=== PATIENT | male | born 1970 | race Asian ===

== ENCOUNTER 2017-01-27 22:03 | Inpatient (IN) | payer BC ==
--- NOTE | 2017-01-27 22:12 | EDPHY ---
H & P Stated Complaint: R foot pain, possibly d/t bite?, onset approx 14:30 today HPI/ROS: HPI CHIEF COMPLAINT: Right foot pain, swelling, redness HISTORY OF PRESENT ILLNESS: This patient very pleasant 46-year-old male, immunocompetent, nondiabetic, does not take any daily medications. He presents the emergency room with right foot pain. States 10/10 dorsum of the right foot. Redness. He denies any direct trauma. This started hurting him rather severe around 4 o'clock this evening. He does admit to increased heart rate. Denies fever. Has had chills. He is unsure exactly what caused his right foot pain. He did take a fall yesterday of his right knee but does not recall injuring his right foot. He states he was wearing sandals today. Developed this pain. Past Medical History: Denies Medical history Past Surgical History: Denies surgical history Social History: Denies daily use drugs alcohol tobacco products Family History: Noncontributory ROS REVIEW OF SYSTEMS: A comprehensive 10 point review of systems is otherwise negative aside from elements mentioned in the history of present illness. Exam Constitutional triage nursing summary reviewed, vital signs reviewed, awake/ alert. Eyes normal conjunctivae and sclera, EOMI, PERRLA. HENT normal inspection, atraumatic, moist mucus membranes, no epistaxis, neck supple/ no meningismus, no raccoon eyes. Respiratory clear to auscultation bilaterally, normal breath sounds, no respiratory distress, no wheezing. Cardiovascular rate normal, regular rhythm, no murmur, no edema, distal pulses normal. Gastrointestinal soft, non-tender, no rebound, no guarding, normal bowel sounds, no distension, no pulsatile mass. Genitourinary no CVA tenderness. Musculoskeletal right foot: Neurovascular intact. There is significant tenderness over the dorsum of the foot specifically over the 1st and 2nd metatarsal with erythema and warmth present. No fluctuance. When I have him plantar flexes cause of a great deal pain. There is no crepitus. No signs of compartment syndrome. no midline vertebral tenderness, full range of motion, no calf swelling, no tenderness of extremities, no meningismus, good pulses, neurovascularly intact. Skin pink, warm, & dry, no rash, skin atraumatic. Neurologic awake, alert and oriented x 3, AAOx3, moves all 4 extremities equally, motor intact, sensory intact, CN II-XII intact, normal cerebellar, normal vision, normal speech. Psychiatric normal mood/affect. Heme/Lymph/Immune no lymphadenopathy. Differential Diagnosis: Includes but is not limited to in a particular order: Right foot cellulitis, deep space foot infection, necrotizing fasciitis, MRSA infection, tendinitis, arthritis, gout Medical Decision Making: Plan for this patient IV establishment with blood work , blood cultures, lactic acid, inflammatory markers, obtain x-ray of right foot to evaluate for gas. Patient most likely need MRI of his right foot. Antibiotics. IV pain control with fentanyl and IV fluids. Re-evaluation: 2248: I discussed at length this patient about his evaluation of his acute right foot pain with erythema and warmth. I am very concerned that he has significant foot infection. This is not the classic position of where gout is. He is exquisitely tender. I am concerned of a foot infection possible tendinitis with infection. ED x-ray right foot: Negative for bony abnormality. No gas visualized. 4: Blood work has been reviewed. Does have a leukocytosis. Left shift. I have ordered this patient broad-spectrum antibiotics. IV vancomycin IV Zosyn. IV fentanyl for pain control. Patient pending MRI foot. 2324: Consult the hospitalist service Dr. Corbett who will agree to admit this patient. 2330: Spoke with ID Dr. Hudson Manriquez. He is agreeable with this workup at this time. Agrees with vanc and Zosyn. If the MRI does infection show necrotizing fasciitis recommends adding clindamycin. Hospitalist service updated. 1209AM: Patient is back from MRI. The MRI of his right foot show cellulitis. No deep space infection. No abscess. Patient be admitted for right foot cellulitis. Broad-spectrum antibiotics. Patient is hemodynamically stable no evidence of sepsis. IV vancomycin IV Zosyn ordered. Infectious Disease has been consulted. Hospitalist service been consult. Source: Patient - Personal History Current Tetanus/Diphtheria Vaccine: Yes Tetanus Vaccine Date: 2009 - Medical/Surgical History Hx Asthma: No Hx Chronic Respiratory Disease: No Hx Diabetes: No Hx Cardiac Disease: No Hx Renal Disease: No Hx Cirrhosis: No Hx Alcoholism: No Hx HIV/AIDS: No Hx Splenectomy or Spleen Trauma: No Other PMH: PMHx: diverticulitis. PSHx: L4-5 diskectomy, partial bowel resection - Social History Smoking Status: Light smoker Constitutional: Initial Vital Signs Temperature (C) 36.9 C 01/27/17 22:07 Heart Rate 102 H 01/27/17 22:07 Respiratory Rate 24 H 01/27/17 22:07 Blood Pressure 162/102 H 01/27/17 22:07 O2 Sat (%) 98 01/27/17 22:07 O2 Delivery Mode Room Air Allergies/Adverse Reactions: morphine Allergy (Severe, Verified 10/09/11 14:57) LUNG COLLAPSED AND FILLED Home Medications: Medication Instructions Recorded Herbals/Supplements -Info Only 1 ea PO DAILY 01/28/17 Medical Decision Making - Data Points Laboratory Results: Laboratory Results 01/27/17 22:40 01/27/17 22:40 Medications Given: Acetaminophen (Tylenol) 650 mg PO Q4HRS PRN PRN Reason: Pain, Mild/Fever, Can Take PO Stop: 07/26/17 23:26 Last Admin: 01/28/17 21:21 Dose: 650 mg Hydrocodone Bitart/Acetaminophen ([place] 5/325) 1 - 2 tab PO Q4HRS PRN PRN Reason: Pain, Moderate Able to Take PO Stop: 02/07/17 00:46 Last Admin: 01/28/17 21:44 Dose: 1 tab Diphenhydramine HCl (Benadryl Injection) 25 mg IVP Q6H PRN PRN Reason: Itching Stop: 07/27/17 13:04 Last Admin: 01/28/17 13:24 Dose: 25 mg Vancomycin HCl 1.25 gm/ (Dextrose) 250 mls @ 166.667 mls/hr IV Q12@0000,1200 PRANAY Stop: 02/27/17 11:59 Last Admin: 01/29/17 00:45 Dose: 250 mls Clindamycin Phosphate/Dextrose (Cleocin 600 Mg (Premix)) 50 mls @ 100 mls/hr IV Q8HRS PRANAY PRN Reason: Protocol Stop: 02/27/17 13:59 Last Admin: 01/28/17 21:13 Dose: 50 mls Ibuprofen (Motrin) 400 mg PO Q6HRS PRN PRN Reason: Pain, Inflammatory Stop: 07/27/17 11:02 Last Admin: 01/28/17 18:58 Dose: 400 mg Miscellaneous Medication (Non-Formulary) 1 ea PO QD PRN PRN Reason: DIETARY SUPPLEMENT Stop: 07/27/17 18:17 Last Admin: 01/28/17 22:03 Dose: 10 ml Throat Lozenges (Cepacol Lozenge) 1 ea PO PRN PRN PRN Reason: Sore Throat Stop: 07/27/17 10:01 Last Admin: 01/28/17 12:16 Dose: 1 ea Discontinued Medications Acetaminophen (Tylenol) 1,000 mg PO EDNOW ONE Stop: 01/28/17 00:28 Last Admin: 01/28/17 00:29 Dose: 1,000 mg Fentanyl (Sublimaze) 75 mcg IVP EDNOW ONE Stop: 01/27/17 22:40 Last Admin: 01/27/17 22:47 Dose: 75 mcg Fentanyl (Sublimaze) 50 mcg IVP EDNOW ONE Stop: 01/28/17 00:20 Last Admin: 01/28/17 00:23 Dose: 50 mcg Sodium Chloride (Ns) 1,000 mls @ 0 mls/hr IV ONCE ONE PRN Reason: Wide Open Stop: 01/27/17 22:32 Last Admin: 01/27/17 22:47 Dose: 1,000 mls Vancomycin/Sodium Chloride (Vancomycin 1 Gm (Premix)) 250 mls @ 250 mls/hr IV EDNOW ONE PRN Reason: Protocol Stop: 01/27/17 23:52 Last Admin: 01/28/17 00:18 Dose: 250 mls Piperacillin/Tazobactam/Dextrose (Zosyn (Premix)) 100 mls @ 200 mls/hr IV EDNOW ONE PRN Reason: Protocol Stop: 01/27/17 23:22 Last Admin: 01/27/17 23:19 Dose: 100 mls Sodium Chloride (Ns) 1,000 mls @ 125 mls/hr IV CONT PRANAY Stop: 07/27/17 00:59 Last Admin: 01/28/17 02:17 Dose: 1,000 mls Sodium Chloride (Ns) 1,000 mls @ 3,000 mls/hr IV ONCE ONE Stop: 01/28/17 01:09 Last Admin: 01/28/17 05:28 Dose: 1,000 mls Piperacillin/Tazobactam/Dextrose (Zosyn (Premix)) 100 mls @ 200 mls/hr IV Q6HRS PRANAY PRN Reason: Protocol Stop: 02/27/17 05:59 Last Admin: 01/28/17 07:44 Dose: 100 mls Ondansetron HCl (Zofran) 4 mg IVP EDNOW ONE Stop: 01/27/17 22:40 Last Admin: 01/27/17 22:47 Dose: 4 mg Departure - Departure Disposition: [facility] Acute Clinical Impression: Cellulitis of foot Condition: Fair
[2017-01-27] MEDS ORDERED: NS 1,000 ML IV ONE (22:31)
[2017-01-27] MEDS ORDERED: ONDANSETRON 4 MG/2 ML VIAL IVP ONE (22:39)
[2017-01-27] MEDS ORDERED: fentaNYL 100 MCG/2 ML INJ IVP ONE (22:39)
[2017-01-27 22:49] LABS: % IMMATURE GRANULYOCYTES 0.3 % (0.0-1.1); ABSOLUTE IMMATURE GRANULOCYTES 0.04 10^3/uL (0.00-0.10); ADD DIFF? NO; ADD MORPH? NO; ADD SCAN? NO; ATYPICAL LYMPHOCYTE FLAG 0 (0-99); FRAGMENT RBC FLAG 0 (0-99); HEMATOCRIT 45.6 % (40.0-51.0); HEMOGLOBIN 14.9 g/dL (13.7-17.5); LEFT SHIFT FLG 0 (0-99); LIPEMIA HEMOLYSIS FLAG 80 (0-99); MEAN CELL HEMOGLOBIN 25.2 pg (27.9-34.1); MEAN CELL HEMOGLOBIN CONCENTR. 32.7 g/dL (32.4-36.7); MEAN CELL VOLUME 77.2 fL (81.5-99.8); MEAN PLATELET VOLUME 10.1 fL (8.7-11.7); PLATELET CLUMPS FLAG 0 (0-99); PLATELET COUNT 250 10^3/uL (150-400); RED BLOOD CELL COUNT 5.91 10^6/uL (4.40-6.38); RED CELL DISTRIBUTION WIDTH 15.9 % (11.5-15.2)
[2017-01-27] MEDS ORDERED: VANCOMYCIN HCL/NORMAL SALINE 250 ML IV ONE (22:53)
[2017-01-27] MEDS ORDERED: PIPERACILLIN/TAZO 4.5 GM/DEX 100 ML IV ONE (22:53)
[2017-01-27 23:00] LABS: SEDIMENTATION RATE 8 MM/HR (0-15)
[2017-01-27 23:04] LABS: ANION GAP 14 mEq/L (8-16); C-REACTIVE PROTEIN 10.2 mg/L (<10.0); CALCIUM 9.9 mg/dL (8.5-10.4); CARBON DIOXIDE 27 mEq/l (22-31); CHLORIDE 101 mEq/L (97-110); GLOMERULAR FILTRATION RATE > 60; GLUCOSE 71 mg/dL (70-100); POTASSIUM 4.4 mEq/L (3.5-5.2); SODIUM 142 mEq/L (134-144)
[2017-01-27] MEDS ORDERED: TEMAZEPAM 15 MG CAP PO PRN (23:27)
[2017-01-27] MEDS ORDERED: ONDANSETRON DISINTEGRATING 4 MG TAB PO PRN (23:27)
[2017-01-27] MEDS ORDERED: ONDANSETRON 4 MG/2 ML VIAL IVP PRN (23:27)
[2017-01-27] MEDS ORDERED: ACETAMINOPHEN 325 MG TAB PO PRN (23:27)
[2017-01-27] MEDS ORDERED: fentaNYL 100 MCG/2 ML INJ IVP PRN (23:29)
[2017-01-27] MEDS ORDERED: GADOBUTROL 10 ML VIAL IVP ONE (23:39)
[2017-01-28] MEDS ORDERED: fentaNYL 100 MCG/2 ML INJ IVP ONE (00:19)
[2017-01-28] MEDS ORDERED: ACETAMINOPHEN 500 MG TAB PO ONE (00:27)
[2017-01-28] MEDS ORDERED: NS 1,000 ML IV ONE (00:50)
[2017-01-28] MEDS ORDERED: NS 1,000 ML IV SCH (01:00)
--- NOTE | 2017-01-28 01:19 | GHP ---
[f rep st] HISTORY AND PHYSICAL DATE OF ADMISSION: 01/27/2017 CHIEF COMPLAINT: Right foot pain. HISTORY OF PRESENT ILLNESS: This is a 46-year-old man who presents with sudden onset of right foot pain at 3 p.m. today. Notes that it has been red, as well as warm. It has also been extremely painful. The redness and warmth have worsened. He feels as though he is now unable to bear weight on it. He has had some chills since being in the emergency department. He does not have a history of diabetes. He does have a history of 2 wound infections post surgery. He has never had a history of any resistant organisms to his knowledge. PAST MEDICAL/SURGICAL HISTORY: 1. Diverticulitis with wound infection. 2. Left KOLBY also with a wound infection. MEDICATIONS: Please see medication reconciliation. ALLERGIES: Morphine, this was after going to the OR. FAMILY HISTORY: Reviewed and noncontributory. SOCIAL HISTORY: He is accompanied by his . REVIEW OF SYSTEMS: A 10-point review of systems is conducted and is negative except per HPI. PHYSICAL EXAM: VITAL SIGNS: Blood pressure 119/82, heart rate 96, respiration rate 16, saturating 97% on room air, temperature is 37.6. GENERAL: The patient is a pleasant man who is lying comfortably in bed. No acute distress. HEENT: Shows him to be normocephalic, atraumatic. CARDIOVASCULAR: Shows regular rate and rhythm. No murmurs, rubs, or gallops. PULMONARY: Lungs clear to auscultation bilaterally. ABDOMEN: Soft, nontender, nondistended. SKIN: No rash. : No Chaney. NEUROLOGIC: Shows him to be alert and oriented x3. He is moving all extremities. PSYCHIATRIC: Shows normal mood and affect. EXTREMITIES: Shows right foot to have an area of erythema on the dorsum of the foot. It is very warm. There was a line that was drawn by his . It has extended beyond this. The left toe on the medial aspect has an area of denuded skin. LABORATORY DATA: His white count is 14.2 with 82% neutrophils. basic metabolic panel is normal. CRP is 10. ESR is 8. 1. I discussed with Dr. Diego in the emergency department. Will admit to med/ surg for antibiotics. 2. I reviewed his prelim read on his MRI, shows cellulitis, no osteomyelitis, no abscess. 3. I reviewed his foot x-ray. This shows no evidence of fracture or osteomyelitis. IMPRESSION AND PLAN: A 46-year-old man with right foot cellulitis. 1. Right foot cellulitis: I think this is likely gram-positive, although per verbal report Dr. Manriquez has recommended vancomycin and Zosyn. We will continue these empirically for now, but I suspect we will narrow spectrum to gram-positives soon. I have asked that the nurse redraw a line around his area of erythema. We will monitor his clinical course very closely including vital signs, labs. I have given him some additional fluid. 2. Leukocytosis: This is due to the above process. Will follow tomorrow morning. /[id number]/MODL MTDD
[2017-01-28] MEDS: HYDROCODONE/APAP 5/325 TAB PO PRN ×3 (02:17→21:44)
[2017-01-28 04:51] LABS: % IMMATURE GRANULYOCYTES 0.3 % (0.0-1.1); ABSOLUTE IMMATURE GRANULOCYTES 0.03 10^3/uL (0.00-0.10); ADD DIFF? NO; ADD MORPH? NO; ADD SCAN? NO; ATYPICAL LYMPHOCYTE FLAG 10 (0-99); FRAGMENT RBC FLAG 0 (0-99); HEMATOCRIT 37.8 % (40.0-51.0); LEFT SHIFT FLG 0 (0-99); LIPEMIA HEMOLYSIS FLAG 80 (0-99); MEAN CELL HEMOGLOBIN 24.6 pg (27.9-34.1); MEAN CELL HEMOGLOBIN CONCENTR. 31.7 g/dL (32.4-36.7); MEAN CELL VOLUME 77.5 fL (81.5-99.8); MEAN PLATELET VOLUME 10.4 fL (8.7-11.7); PLATELET CLUMPS FLAG 0 (0-99); PLATELET COUNT 191 10^3/uL (150-400); RED BLOOD CELL COUNT 4.88 10^6/uL (4.40-6.38); RED CELL DISTRIBUTION WIDTH 15.8 % (11.5-15.2)
[2017-01-28 05:02] LABS: ALANINE AMINOTRANSFERASE 34 IU/L (21-72); ALBUMIN 3.2 g/dL (3.5-5.0); ALKALINE PHOSPHATASE 52 IU/L (38-126); ANION GAP 9 mEq/L (8-16); ASPARTATE AMINOTRANSFERASE 26 IU/L (17-59); BILIRUBIN,TOTAL 0.5 mg/dL (0.1-1.4); CALCIUM 8.5 mg/dL (8.5-10.4); CARBON DIOXIDE 24 mEq/l (22-31); CHLORIDE 102 mEq/L (97-110); GLOMERULAR FILTRATION RATE > 60; GLUCOSE 97 mg/dL (70-100); SODIUM 135 mEq/L (134-144)
[2017-01-28] MEDS ORDERED: PIPERACILLIN/TAZO 4.5 GM/DEX 100 ML IV SCH ×4 (06:00→14:00)
--- NOTE | 2017-01-28 10:07 | HOSPPROG ---
Hospitalist Progress Note Assessment/Plan: Patient is a 46-year-old male presented to the emergency room with sudden onset of right foot pain. It was noted to be red and warm. He was unable to bear weight on it. Today is my 1st encounter with the patient. Chart reviewed. Discussed his care with Dr. Corbett who admitted him last night. * right foot cellulitis empirically started on vancomycin and Zosyn Infectious Disease to see him MRI shows cellulitis without osteomyelitis, no abscess * pain due to this continue pain medications trial of anti-inflammatory * leukocytosis improved Subjective: Gloria said pain is intense with walking. Objective: Vital Signs Temp Pulse Resp BP Pulse Ox 37.7 C 74 16 108/72 95 01/28/17 07:51 01/28/17 07:51 01/28/17 07:51 01/28/17 07:51 01/28/17 07:51 Laboratory Results 01/28/17 04:19 01/28/17 04:19 01/27/17 01/28/17 01/29/17 05:59 05:59 05:59 Intake Total 1000 Balance 1000 - Physical Exam Constitutional: no apparent distress, appears nourished Eyes: PERRL Ears, Nose, Mouth, Throat: hearing normal Cardiovascular: regular rate and rhythym Respiratory: no respiratory distress Gastrointestinal: normoactive bowel sounds Skin: warm, other (r foot w some erythema on the top part of the foot/warm, red , tender) Neurologic: AAOx3 Psychiatric: interacting appropriately ICD10 Worksheet Patient Problems: Problems Problem Status Onset Cellulitis of foot Acute
[2017-01-28] MEDS: CEPACOL LOZENGE PO PRN ×2 (10:13→12:16)
--- NOTE | 2017-01-28 10:32 | WOCRNPDOC ---
WOCRN Advanced Assessment Note - Skin Integrity Problem, Advanced Assess Right Fifth Toe Dressing Type: Open to Air Exudate Amount: None Exudate Characteristic(s): None Stacie Wound Tissue: Erythema, Intact Stacie Wound Swelling: Mild Wound Bed Color: Red Skin Integrity Problem Comment: Pinpoint abrasion noted on inner medial 5th toe , which patient reports is the result of a friction injury from running. While this site does not appear to be open at this time, this could have been a point of entry for current infection in R foot. From a wound care perspective, there is really nothing to be done at this point. Discussed w/ patient the possibility of placing foam (maybe using a commerical soft foam pad for corns, such as Dr. Palumbo's) between his 4th and 5th toes ongoing to prevent this injury from reoccuring. Wound care does not need to follow this patient going forward, and nursing should reconsult w/ any new or additional concerns.
[2017-01-28] MEDS: VANCOMYCIN 1.25 GM in D5W 250 ML IV SCH (11:45)
[2017-01-28] MEDS: CLINDAMYCIN 600 MG/DEXTROSE 50 ML IV SCH ×2 (14:16→21:13)
[2017-01-28] MEDS ORDERED: COLD EEZE PO PRN (18:16)
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
[2017-01-28] MEDS: ELDERBERRY EXTRACT PO PRN ×2 (18:42→22:03)
[2017-01-28] MEDS: IBUPROFEN 200 MG TAB PO PRN (18:58)
[2017-01-29] MEDS: VANCOMYCIN 1.25 GM in D5W 250 ML IV SCH ×2 (00:45→13:52)
--- NOTE | 2017-01-29 01:27 | GCON ---
[f rep st] CONSULTATION DATE OF CONSULTATION: 01/28/2017 HISTORY: This is a 46-year-old male who was admitted with right foot pain of a short duration. He stated his right foot has become progressively worse over just 24 hours. He has had associated low- grade fevers. On admission, his white count was elevated, but the sedimentation rate was normal. Jonathan leblanc did have a fall the day before admission, where he struck mostly his knee. He has been training a ggressively for a triathlon with a significant amount of running and biking. He is admitted at this time for right foot cellulitis, and I was asked to consult to rule out necrotizing fasciitis. MRI of his foot reveals superficial edema consistent with cellulitis with no evidence of bony involvemen t. Foot x-ray reveals no obvious fractures. PAST MEDICAL HISTORY: Negative for any surgical intervention. He also denies any major medical pro blems. FAMILY HISTORY: Noncontributory. REVIEW OF SYSTEMS: Reveals no major other medical problems on a full 10-point review of systems. PAST SURGICAL HISTORY: Negative. SOCIAL HISTORY: He does not smoke. PHYSICAL EXAMINATION: GENERAL: An alert 46-year-old male in no acute distress. HEENT: Exam appea rs to be normal. His pupils are normal. There is no adenopathy. No icterus. NECK: Supple. CHES T: Clear and symmetric. CARDIAC: Regular rhythm. ABDOMEN: Soft without masses, or organomegaly. GENITALIA: Normal. EXTREMITIES: Benign with full distal pulses. On the dorsum of his right edelmira t is an area of erythema and extreme tenderness. He has full range of motion of his foot. NEUROLOG IC: Reveals the exam to be symmetrical and physiologic. PSYCHIATRIC: He is oriented and alert and cooperative. SKIN: Reveals a small abrasion between his right 5th and 4th toes, but no purulence, or drainage, or erythema. IMPRESSION: Cellulitis of the right foot. I do not feel there is any evidence at this point of nec rotizing fasciitis, despite his pain inconsistent with his physical findings. He has been training hard. He may have an element of tendinitis associated with this, or as the actual cause of his unde rlying problem in the right foot. RECOMMENDATIONS: An anti-inflammatory such as Indocin. Close observation on IV antibiotics. I and D if worsening. /[id number]/MODL
[2017-01-29] MEDS: CLINDAMYCIN 600 MG/DEXTROSE 50 ML IV SCH ×3 (05:05→21:15)
[2017-01-29] MEDS: HYDROCODONE/APAP 5/325 TAB PO PRN ×3 (09:51→17:22)
--- NOTE | 2017-01-29 10:30 | PCMIDPN ---
Assessment/Plan: Assessment/Plan: * Right foot cellulitis: Mild improvement with less tenderness over outer portion of cellulitic area. Appreciate Dr. Escoto' consultation. No extension of cellulitis other than small area of lymphangitis present over ankle. Continue vancomycin and clindamycin with lower extremity elevation. Continue to follow exam over time. Will assess vancomycin trough today. 01/29/17 10:26 Subjective: Patient felt like foot was better around 4:00 a.m. but significant tenderness with ambulation again around 8:00 a.m.. Fever yesterday with chills. Scalp itching resolve with longer duration of vancomycin infusion. Objective: Vital Signs Temp Pulse Resp BP Pulse Ox 37.1 C 72 16 140/87 H 98 01/29/17 08:00 01/29/17 08:00 01/29/17 08:00 01/29/17 08:00 01/29/17 08:00 Laboratory Results 01/28/17 04:19 01/28/17 04:19 01/28/17 01/29/17 01/30/17 05:59 05:59 05:59 Intake Total 1000 350 800 Balance 1000 350 800 ESR 8 MM/HR (0-15) 01/27/17 22:40 C-Reactive Protein 10.2 mg/L (<10.0) H 01/27/17 22:40 Vancomycin # 2 Clindamycin # 2 Blood cultures x2 no growth - Physical Exam General Appearance: alert, no apparent distress EENT: No scleral icterus Extremities: inflammation (Right foot with erythema localized over dorsal aspect which is less prominent in extent; still remains exquisitely tender; no fluctuance or bulla) Lymphatic: other (Small area of faint lymphangitis over ankle region) ICD10 Worksheet Patient Problems: Problems Problem Status Onset Cellulitis of foot Acute
[2017-01-29] MEDS: IBUPROFEN 200 MG TAB PO PRN (12:39)
--- NOTE | 2017-01-29 12:50 | HOSPPROG ---
Hospitalist Progress Note Assessment/Plan: Patient is a 46-year-old male presented to the emergency room with sudden onset of right foot pain. It was noted to be red and warm. He was unable to bear weight on it. Reviewed his care with Dr Nash. * right foot cellulitis vancomycin and clindamycin ID and surgery involved less painful today MRI shows cellulitis without osteomyelitis, no abscess * pain due to this continue pain medications *fevers none today * leukocytosis improved *Plan: he is not quite ready for dc/ still having pain/ will continued close monitoring Subjective: Gloria said his pain has changed/ went to 2 last evening and then increased to a 7 on scale of 1-10. Not having significant pain during my evluation. Objective: Vital Signs Temp Pulse Resp BP Pulse Ox 37.1 C 72 16 140/87 H 98 01/29/17 08:00 01/29/17 08:00 01/29/17 08:00 01/29/17 08:00 01/29/17 08:00 Laboratory Results 01/28/17 04:19 01/28/17 04:19 01/28/17 01/29/17 01/30/17 05:59 05:59 05:59 Intake Total 1000 350 800 Balance 1000 350 800 - Physical Exam Constitutional: no apparent distress, appears nourished Eyes: PERRL Ears, Nose, Mouth, Throat: hearing normal Cardiovascular: regular rate and rhythym, bradycardia Respiratory: no respiratory distress Skin: warm, other (right dorsal are of foot with redness now w some tenderness aroung ankle and up into the dueñas area.) Musculoskeletal: muscular tenderness Neurologic: AAOx3 Psychiatric: interacting appropriately ICD10 Worksheet Patient Problems: Problems Problem Status Onset Cellulitis of foot Acute
[2017-01-29] MEDS: VANCOMYCIN 1.5 GM in D5W 250 ML IV SCH (14:18)
[2017-01-29] MEDS ORDERED: IBUPROFEN 200 MG TAB PO PRN (14:48)
[2017-01-29] MEDS: KETOROLAC 15 MG/1 ML SDV IVP SCH ×2 (17:21→23:48)
--- NOTE | 2017-01-29 17:21 | SOAPPROG ---
SOAP Progress Note Assessment/Plan: Assessment: FOLLOW-UP RIGHT FOOT CELLULITIS/TEMPERATURE DOWN/PAIN IS SOMEWHAT BETTER/ ERYTHEMA RESOLVED/ STILL SUSPECT AN ELEMENT OF TENDINITIS Plan: WE WILL FOLLOW/RECOMMEND TORADOL OR INDOCIN 01/29/17 17:18 Objective: Vital Signs Temp Pulse Resp BP Pulse Ox 37.1 C 72 16 140/87 H 98 01/29/17 08:00 01/29/17 08:00 01/29/17 08:00 01/29/17 08:00 01/29/17 08:00 ICD10 Worksheet Patient Problems: Problems Problem Status Onset Cellulitis of foot Acute
[2017-01-29] MEDS ORDERED: MAGNESIUM HYDROXIDE 30 ML UDCUP PO PRN (18:09)
[2017-01-29] MEDS ORDERED: BISACODYL 10 MG SUPP PR PRN (18:09)
[2017-01-29] MEDS ORDERED: POLYETHYLENE GLYCOL 3350 17 GM PKT PO PRN (18:09)
[2017-01-29] MEDS ORDERED: LACTULOSE 20 GM/30 ML UDCUP PO PRN (18:09)
[2017-01-29] MEDS: SENNOSIDES/DOCUSATE SODIUM TAB PO SCH (21:14)
[2017-01-30] MEDS: VANCOMYCIN 1.5 GM in D5W 250 ML IV SCH (03:48)
[2017-01-30 05:14] LABS: % IMMATURE GRANULYOCYTES 0.3 % (0.0-1.1); ABSOLUTE IMMATURE GRANULOCYTES 0.03 10^3/uL (0.00-0.10); ADD DIFF? NO; ADD MORPH? NO; ADD SCAN? NO; ATYPICAL LYMPHOCYTE FLAG 30 (0-99); FRAGMENT RBC FLAG 0 (0-99); HEMATOCRIT 37.8 % (40.0-51.0); HEMOGLOBIN 12.2 g/dL (13.7-17.5); LEFT SHIFT FLG 10 (0-99); LIPEMIA HEMOLYSIS FLAG 80 (0-99); MEAN CELL HEMOGLOBIN 24.8 pg (27.9-34.1); MEAN CELL HEMOGLOBIN CONCENTR. 32.3 g/dL (32.4-36.7); MEAN CELL VOLUME 76.8 fL (81.5-99.8); MEAN PLATELET VOLUME 10.3 fL (8.7-11.7); PLATELET CLUMPS FLAG 0 (0-99); PLATELET COUNT 187 10^3/uL (150-400); RED BLOOD CELL COUNT 4.92 10^6/uL (4.40-6.38); RED CELL DISTRIBUTION WIDTH 15.6 % (11.5-15.2)
[2017-01-30] MEDS: KETOROLAC 15 MG/1 ML SDV IVP SCH ×3 (05:42→17:37)
[2017-01-30 05:43] LABS: ALANINE AMINOTRANSFERASE 35 IU/L (21-72); ALBUMIN 3.4 g/dL (3.5-5.0); ALKALINE PHOSPHATASE 50 IU/L (38-126); ANION GAP 10 mEq/L (8-16); ASPARTATE AMINOTRANSFERASE 23 IU/L (17-59); BILIRUBIN,TOTAL 0.5 mg/dL (0.1-1.4); CALCIUM 8.7 mg/dL (8.5-10.4); CARBON DIOXIDE 26 mEq/l (22-31); CHLORIDE 101 mEq/L (97-110); CREATININE 0.8 mg/dL (0.7-1.3); GLOMERULAR FILTRATION RATE > 60; GLUCOSE 107 mg/dL (70-100); SODIUM 137 mEq/L (134-144); TOTAL PROTEIN 6.2 g/dL (6.3-8.2)
[2017-01-30] MEDS: CLINDAMYCIN 600 MG/DEXTROSE 50 ML IV SCH (08:12)
[2017-01-30] MEDS: SENNOSIDES/DOCUSATE SODIUM TAB PO SCH ×2 (08:26→21:37)
--- NOTE | 2017-01-30 08:53 | HOSPPROG ---
Hospitalist Progress Note Assessment/Plan: Patient is a 46-year-old male presented to the emergency room with sudden onset of right foot pain. It was noted to be red and warm. He was unable to bear weight on it. Reviewed his care with Dr Nash. * right foot cellulitis/ with some tendonitis vancomycin and clindamycin ID and surgery involved MRI shows cellulitis without osteomyelitis, no abscess * pain due to this continue pain medications *fevers none today * leukocytosis improved *Plan: Objective: Vital Signs Temp Pulse Resp BP Pulse Ox 36.9 C 72 18 149/82 H 95 01/30/17 07:47 01/30/17 07:47 01/30/17 07:47 01/30/17 07:47 01/30/17 07:47 Laboratory Results 01/30/17 04:34 01/30/17 04:34 01/29/17 01/30/17 01/31/17 05:59 05:59 05:59 Intake Total 250 Balance 250 ICD10 Worksheet Patient Problems: Problems Problem Status Onset Cellulitis of foot Acute
--- NOTE | 2017-01-30 10:03 | SOAPPROG ---
SOAP Progress Note Assessment/Plan: Assessment: 46 yo male with right foot cellulitis without evidence of osteomyelitis or abscess Continue Toradol Continue Vanc and clindamycin Appreciate ID Ambulate as tolerated White count WNL today Appreciate hospitalists Seen and examined with Dr. Escoto S: patient states pain much improved with Toradol. He is able to ambulate independently. No other concerns at this time O: Afebrile, NAD MMM Right foot erythematous but improved. No warmth or drainage present Good strength and mobility with plantarflexion and dorsiflexion Objective: Vital Signs Temp Pulse Resp BP Pulse Ox 36.9 C 72 18 149/82 H 95 01/30/17 07:47 01/30/17 07:47 01/30/17 07:47 01/30/17 07:47 01/30/17 07:47 Laboratory Results 01/30/17 04:34 01/30/17 04:34 01/29/17 01/30/17 01/31/17 05:59 05:59 05:59 Intake Total 250 Balance 250 ICD10 Worksheet Patient Problems: Problems Problem Status Onset Cellulitis of foot Acute
[2017-01-30] MEDS: HYDROCODONE/APAP 5/325 TAB PO PRN ×2 (10:36→17:40)
--- NOTE | 2017-01-30 10:43 | PCMIDPN ---
Assessment/Plan: Assessment/Plan: * Right foot cellulitis: Continued slow improvement in cellulitis over dorsum of foot. Worse with dependency which I discussed with patient noting not unexpected to see this occur. 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 Given use of Toradol, will discontinue vancomycin and change to cefazolin based on likely microbiologic etiology and allows to avoid use of concomitant possible nephrotoxins. Will also discontinue clindamycin as likely have achieve maximal benefit in terms of combating toxin production. Continue leg elevation. Think patient requires continued hospitalization for IV antibiotics based on clinical findings although hopeful may be able to transition to oral therapy in next 24-48 hours. 01/30/17 10:34 Subjective: Patient notes that foot appears more swollen and red with standing. Dissipates when lies back down and elevates lower extremity. Objective: Vital Signs Temp Pulse Resp BP Pulse Ox 36.9 C 72 18 149/82 H 95 01/30/17 07:47 01/30/17 07:47 01/30/17 07:47 01/30/17 07:47 01/30/17 07:47 Laboratory Results 01/30/17 04:34 01/30/17 04:34 01/29/17 01/30/17 01/31/17 05:59 05:59 05:59 Intake Total 250 Balance 250 ESR 8 MM/HR (0-15) 01/27/17 22:40 C-Reactive Protein 10.2 mg/L (<10.0) H 01/27/17 22:40 Vancomycin # 3 Clindamycin # 3 Blood cultures x2 no growth Laboratory Tests 01/29/17 11:25 Vancomycin Trough 6.0 - Physical Exam General Appearance: alert, no apparent distress EENT: No scleral icterus Extremities: inflammation (Erythema over dorsum of foot significantly less prominent; tenderness also significantly decreased; edema present over dorsal aspect extending to medial malleolar region; more prominent with dependency) Lymphatic: other (Faint lymphangitis in lower leg above ankle) ICD10 Worksheet Patient Problems: Problems Problem Status Onset Cellulitis of foot Acute
[2017-01-30] MEDS: ceFAZolin 2 GM/DEXTROSE 100 ML IV SCH ×3 (10:50→21:37)
--- NOTE | 2017-01-30 15:51 | HOSPPROG ---
Hospitalist Progress Note Assessment/Plan: Patient is a 46-year-old male presented to the emergency room with sudden onset of right foot pain. It was noted to be red and warm. He was unable to bear weight on it. Reviewed his care with Dr Nash. * right foot cellulitis/ with some tendonitis antibiotics changed to cefazolin ID and surgery involved MRI shows cellulitis without osteomyelitis, no abscess trial of Toradol to see if this helps with this pain * pain due to this continue pain medications *fevers none today * leukocytosis improved * DVT prophylaxis: will initiate low molecular weight heparin because he is not mobilizing that much *Plan: redness and pain are ongoing he will require another midnight stay. Hopefully will be discharged in the next 1-2 days. Subjective: Gloria ambulated in the room for me and said pain increased to a '7' Objective: Vital Signs Temp Pulse Resp BP Pulse Ox 37.2 C 69 18 142/94 H 95 01/30/17 15:41 01/30/17 15:41 01/30/17 15:41 01/30/17 15:41 01/30/17 15:41 Laboratory Results 01/30/17 04:34 01/30/17 04:34 01/29/17 01/30/17 01/31/17 05:59 05:59 05:59 Intake Total 250 Balance 250 - Physical Exam Constitutional: uncomfortable Eyes: PERRL Ears, Nose, Mouth, Throat: hearing normal Cardiovascular: regular rate and rhythym Respiratory: no respiratory distress Gastrointestinal: normoactive bowel sounds Skin: other ( the dorsal top of the right foot is red has swelling around the ankle area, the warmth is less today) Musculoskeletal: muscular tenderness Neurologic: AAOx3 Psychiatric: interacting appropriately ICD10 Worksheet Patient Problems: Problems Problem Status Onset Cellulitis of foot Acute
[2017-01-30] MEDS: ENOXAPARIN 40 MG/0.4 ML SYR SC SCH (16:49)
[2017-01-30 23:42] VITALS: RESP 16
[2017-01-31] MEDS: HYDROCODONE/APAP 5/325 TAB PO PRN ×3 (00:13→11:42)
[2017-01-31] MEDS: KETOROLAC 15 MG/1 ML SDV IVP SCH ×3 (00:14→11:33)
[2017-01-31] MEDS: ceFAZolin 2 GM/DEXTROSE 100 ML IV SCH (05:48)
[2017-01-31 07:43] VITALS: BP 132/88; PULSE 59; TEMP 98; O2SAT 96
--- NOTE | 2017-01-31 09:31 | PCMIDPN ---
Assessment/Plan: Assessment/Plan: * Right foot cellulitis: Significantly improved with resolution of erythema and tenderness over dorsal aspect of foot. Some residual edema over medial malleolar region. Able to walk without significant tenderness. Will transition cefazolin to Augmentin 875 mg twice daily x7 days. Follow up with me in the office on 02/05/2017 at 1:00 p.m.. Continue ibuprofen three times daily for next 3-4 days and then as needed. 01/31/17 09:29 Subjective: Patient feels significantly improved with decreased pain and no problems with ambulation. Objective: Vital Signs Temp Pulse Resp BP Pulse Ox 36.6 C 59 L 16 132/88 H 96 01/31/17 07:40 01/31/17 07:40 01/31/17 07:40 01/31/17 07:40 01/31/17 07:40 Laboratory Results 01/30/17 04:34 01/30/17 04:34 01/30/17 01/31/17 02/01/17 05:59 05:59 05:59 Intake Total 250 1000 Balance 250 1000 ESR 8 MM/HR (0-15) 01/27/17 22:40 C-Reactive Protein 10.2 mg/L (<10.0) H 01/27/17 22:40 Cefazolin # 2 Antibiotics # 4 Blood cultures x2 no growth - Physical Exam General Appearance: alert, no apparent distress EENT: No scleral icterus Extremities: inflammation (Erythema and tenderness over dorsal aspect of foot resolved; edema remains over medial malleolar region; erythema over malleolar region significantly decreased), other (Patient able to walk without significant pain) Lymphatic: other (Lymphangitis over right lower extremity now resolved) ICD10 Worksheet Patient Problems: Problems Problem Status Onset Cellulitis of foot Acute
[2017-01-31] MEDS: SENNOSIDES/DOCUSATE SODIUM TAB PO SCH (10:04)
[2017-01-31] MEDS: ENOXAPARIN 40 MG/0.4 ML SYR SC SCH (10:05)
--- NOTE | 2017-01-31 11:54 | SOAPPROG ---
SOAP Progress Note Assessment/Plan: Assessment: 46 yo male with right foot cellulitis without evidence of osteomyelitis or abscess Continue Toradol and Ibuprofen for pain Continue Vanc and clindamycin Appreciate ID Ambulate as tolerated White count WNL today Appreciate hospitalists Dispo: to home with follow up with in Dr. Escoto's office in one week Seen and examined with Dr. Escoto S: patient states pain covered Toradol. He is able to ambulate independently. No other concerns at this time O: Patient walking around room. Afebrile, NAD MMM Right foot erythematous but continues to improve. No warmth or drainage present. Minor right foot edema. Good strength with plantarflexion and dorsiflexion Full ROM 01/31/17 11:51 Objective: Vital Signs Temp Pulse Resp BP Pulse Ox 36.6 C 59 L 16 132/88 H 96 01/31/17 07:40 01/31/17 07:40 01/31/17 07:40 01/31/17 07:40 01/31/17 07:40 Laboratory Results 01/30/17 04:34 01/30/17 04:34 01/30/17 01/31/17 02/01/17 05:59 05:59 05:59 Intake Total 250 1000 Balance 250 1000 ICD10 Worksheet Patient Problems: Problems Problem Status Onset Cellulitis of foot Acute
--- NOTE | 2017-01-31 13:40 | GDS ---
[f rep st] DISCHARGE SUMMARY SERVICE: [facility] Hospitalist CONSULTS: Infectious Disease and General Surgery PROCEDURE: Lower extremity MRI, foot x-ray. HISTORY AND PHYSICAL: Please see previously dictated note by Dr. Corbett. ADMISSION DIAGNOSIS: Right foot cellulitis. DISCHARGE DIAGNOSIS: Right foot cellulitis. HOSPITAL COURSE BY PROBLEM LIST: Right foot cellulitis. He was admitted to the hospital after evalu ation in the ER because of right foot cellulitis and concern for sepsis and osteomyelitis. He was fe brile prior to admission and continued to have a temperature with a T-max of 102.8 noted on 01/28/17 at 1858. He has been afebrile since that time. He also had an elevated heart rate at admission of 1 02, but has remained normal since then. He had blood cultures done and was treated empirically with vancomycin and Zosyn and Infectious Disease was asked to consult on his care. He had an MRI of his l ower extremity which showed dorsal subcutaneous cellulitis, but no abscess, osteomyelitis or tenosyn ovitis. Over the course of his stay, he continued to have significant pain that was out of proportio n to his exam findings so there was concern about necrotizing fasciitis. Surgical consult was reques donny. Dr. Escoto evaluated the patient and wanted to continue with IV antibiotics and close followup. At no point was surgical intervention needed. Vancomycin was continued, Zosyn was stopped, and clind amycin was started by Infectious Disease. On the day of discharge, he is still having pain, but it i s markedly better. Laboratory studies showed a decreased white count to the normal range yesterday a nd cultures have been negative to date. He is going to be discharged home to continue with Augmentin 875 mg twice a day for a week. He has been scheduled for an outpatient followup appointment with Dr Jim Nash. He has been discharged from care by Dr. Escoto. He should also follow up with his primary car e provider, Dr. Plunkett. I have suggested that he consider podiatry referral also as he does have ev idence of tinea infection and trauma to his feet (He is an avid athlete). If at any time he has wors ening pain, increased redness, return of fever or any other symptoms, he is to return immediately fo r re-evaluation. I have warned him that Augmentin can cause some loose stools, but if he is having s ignificant diarrhea or abdominal pain, he should return immediately for evaluation for C difficile a nd he states understanding of these instructions. DISCHARGE MEDICATIONS: Augmentin 875 mg 1 tab twice a day #14, [place] 5/325 one to two tabs every 6 hours as needed for pain #30, ibuprofen 600 mg 1 tab every 6 hours p.r.n. pain #30, Tylenol as neede d. DISCHARGE INSTRUCTIONS: As above. Is scheduled with Dr. Nash on 02/05 at 1 p.m. and he should call Dr. Plunkett for a followup appointment within the next 3-5 days. Of note, he had initially requested a Tdap prior to discharge as there is a new baby coming into his family within the next 4-6 weeks. We were prepared to give this to him in the hospital; however, he changed his mind and said he will get this from his primary care provider, Dr. Nash, at a followup appointment. I have also reminded h im the importance of getting an annual flu vaccine. Copy requested to: Dr. Nash /[id number]/MODL
== END 2017-01-31 13:05 | disposition home or self-care (01) | DRG 603 ==
LOC: F3N 01-28 01:10 → OBSVTOIN 01-29 15:55 → F3E 01-29 18:42
PROVIDERS: ADMIT Student in an Organized Health Care Education/Training Program; ATTEND Student in an Organized Health Care Education/Training Program
DX: L03.115 Cellulitis of right lower limb (principal); D72.829 Elevated white blood cell count, unspecified; B35.3 Tinea pedis; Z96.642 Presence of left artificial hip joint
CPT/HCPCS: 96374; A9585; J0690; J1200; J1650; J1885; J2405; J2543; J3010; J3370

== ENCOUNTER → 2018-06-19 | Outpatient (CLI) | payer BC | LOC: FIMAGING 18:48 | PROVIDERS: ATTEND Orthopaedic Surgery | DX: M48.062 Spinal stenosis, lumbar region with neurogenic claudication (principal); M53.86 Other specified dorsopathies, lumbar region; N28.1 Cyst of kidney, acquired; Z96.642 Presence of left artificial hip joint ==